=== PATIENT | female | born 1980 | race Caucasian/White ===

== ENCOUNTER 2017-01-26 20:32 | Emergency (ER) | payer OTHER ==
--- NOTE | ~2017-01-26 | CR127 ---
[facility] A Service of [facility] & [facility] RADIOLOGY TEXT RESULTS PATIENT: MODESTA PEPPER LOCATION: SED : 82 UNIT #: [id number] AGE: [address]: Herve Correa SEX: F ORDER DR: [id number] [place] [id number] E MR#: [id number] Acc #: [id number] NAME: MODESTA PEPPER : 1980 SEX: F STUDY DATE/TIME: 01/26/2017 20:48 UNIT: SED ROOM: STUDY DESCRIPTION: CR Foot Complete Min 3 View Rt Attending Physician: Herve Correa P.A.-C. Referring Physician: Herve Correa P.A.-C. Ordering Physician: Herve Correa P.A.-C. Primary Care Physician: No Primary Care Physician MEDICAL IMAGING REPORT This report is preliminary unless electronic signature is present. EXAM Right foot. INDICATION Right foot trauma. Pain and swelling. Trampoline injury. FINDINGS 3 views of the right foot without comparison. There is no acute fracture or dislocation. Alignment is anatomic. No foreign body. IMPRESSION Negative right foot. Dictated by... Henry Guerra M.D. THIS IS AN ELECTRONICALLY VERIFIED REPORT Henry Guerra M.D. at 01/27/2017 2:23 AM JARED/bj TD: 01/27/2017 01:12 JOB #: [id number] MEDICAL IMAGING REPORT Page 1 of 1
[~2017-01-26 20:32] MED LIST: AMOXIL500 M1 PO; ATIVAN PO; CELEXA PO; FAMOTIDINE PO; IBUPROFEN800 MG PO; KLONOPIN PO; MEDI-MECLIZINE25 M1 PO; NAPROSYN-EC500 M1 PO; NO MEDICATIONS; PHENERGAN25 MG PO; TYLENOL #3 PO; VICODIN 5/1 TAB 5/50 PO; ZITHROMAX PO
== END 2017-01-26 21:30 | disposition home or self-care (01) ==
LOC: SED 20:32
DX: S93.601A Unspecified sprain of right foot, initial encounter (principal); F17.210 Nicotine dependence, cigarettes, uncomplicated; Z88.5 Allergy status to narcotic agent; Z88.1 Allergy status to other antibiotic agents; Z91.018 Allergy to other foods; W09.8XXA Fall on or from other playground equipment, initial encounter; Y93.44 Activity, trampolining; Y92.39 Other specified sports and athletic area as the place of occurrence of the external cause; Y99.8 Other external cause status
CPT/HCPCS: 29515; 73630; 99283